=== PATIENT | female | born 1955 | race Caucasian/White ===

== ENCOUNTER → 2018-12-21 | Outpatient (CLI) | payer BC ==
--- NOTE | 2018-12-21 12:02 | PCVCIMAG ---
APPROVED REPORT Study performed: 12/21/2018 08:41:13 EXAM: Comprehensive 2D, Doppler, and color-flow Echocardiogram Patient Location: Echo lab Room #: 2Status: routine BSA: 2.21 HR: 83 bpmBP: 134/76 mmHg Rhythm: NSR Other Information Study Quality: Adequate Risk Factors: Cardiac Risk Factors: HTN, Hyperlipidemia, DM Indications Diabetes Hypertension/HDD 2D Dimensions IVSd: 11.61 (7-11mm)LVOT Diam: 17.56 (18-24mm) LVDd: 38.46 mm PWd: 11.06 (7-11mm)Ascending Ao: 33.05 (22-36mm) LVDs: 23.75 (25-40mm) Left Atrium: 38.04 (27-40mm) Aortic Root: 21.84 mm LV Single Plane 4CH: 73.00 % LV Single Plane 2CH: 60.95 % Biplane EF: 68.5 % Volumes Left Atrial Volume (Systole) Single Plane 4CH: 69.95 mLSingle Plane 2CH: 54.54 mL Biplane LA Volume: 63.00 mLLA ESV Index: 28.00 mL/m2 Aortic Valve AoV Peak Sarthak.: 1.78 m/s AO Peak Gr.: 12.98 mmHgLVOT Max P.17 mmHg LVOT Max V: 1.44 m/s AYANA Vmax: 1.97 cm2 Mitral Valve E/A Ratio: 0.7 MV Decel. Time: 149.84 ms MV E Max Sarthak.: 0.51 m/s MV A Sarthak.: 0.71 m/s IVRT: 89.97 ms TDI E/Lateral E': 7.29E/Medial E': 6.38 Medial E' Sarthak.: 0.08 m/s Lateral E' Sarthak.: 0.07 m/s Pulmonary Valve PV Peak Sarthak.: 1.23 m/sPV Peak Gr.: 6.07 mmHg Pulmonary Vein P Vein S: 0.78 m/sP Vein A: 0.36 m/s P Vein D: 0.41 m/sP Vein A Dur.: 93.4 msec P Vein S/D Ratio: 1.90 Tricuspid Valve TR Peak Sarthak.: 1.41 m/s TR Peak Gr.: 7.99 mmHg TV Vmax: 0.58 m/sPA Pressure: 15.00 mmHg Left Ventricle The left ventricle is normal size. There is normal LV segmental wall motion. Mild concentric left ventricular hypertrophy. Left ventricular systolic function is normal. The left ventricular ejection fraction is within the normal range. LVEF is 65-70%. Grade I - abnormal relaxation pattern. Right Ventricle The right ventricle is normal size. The right ventricular systolic function is normal. Atria The left atrium size is normal. The right atrium size is normal. Aortic Valve Aortic valve is trileaflet. Mild aortic valve sclerosis. No aortic regurgitation is present. There is no aortic valvular stenosis. Mitral Valve The mitral valve is normal in structure. There is no mitral valve regurgitation noted. No evidence of mitral valve stenosis. Tricuspid Valve The tricuspid valve is normal in structure. Trace tricuspid regurgitation. No pulmonary hypertension. Pulmonic Valve The pulmonary valve is normal in structure. There is no pulmonic valvular regurgitation. Great Vessels The aortic root is normal in size. The ascending aorta is normal in size. Aortic arch is normal in caliber. IVC is normal in size and collapses >50% with inspiration. Pericardium There is no pericardial effusion. There is no pleural effusion. <Conclusion> The left ventricle is normal size. LVEF is 65-70%. Aortic valve is trileaflet. Mild aortic valve sclerosis. The mitral valve is normal in structure. The tricuspid valve is normal in structure. Trace tricuspid regurgitation. No pulmonary hypertension. The pulmonary valve is normal in structure. There is no pericardial effusion.
== END | disposition home or self-care (01) ==
LOC: PCVCIMAG 08:49
PROVIDERS: ATTEND Internal Medicine
DX: I11.9 Hypertensive heart disease without heart failure (principal); I35.8 Other nonrheumatic aortic valve disorders; E11.9 Type 2 diabetes mellitus without complications; E78.5 Hyperlipidemia, unspecified; E66.9 Obesity, unspecified; M19.90 Unspecified osteoarthritis, unspecified site; Z90.49 Acquired absence of other specified parts of digestive tract; Z90.09 Acquired absence of other part of head and neck; Z96.641 Presence of right artificial hip joint; Z82.49 Family history of ischemic heart disease and other diseases of the circulatory system; Z83.3 Family history of diabetes mellitus; Z80.3 Family history of malignant neoplasm of breast; Z80.42 Family history of malignant neoplasm of prostate; Z72.89 Other problems related to lifestyle; Z88.1 Allergy status to other antibiotic agents; Z88.8 Allergy status to other drugs, medicaments and biological substances
CPT/HCPCS: 93306